=== PATIENT | female | born 1965 | race Caucasian/White ===

== ENCOUNTER 2025-04-06 12:56 | Emergency (ER) | payer SELFPAY ==
[~2025-04-06] VITALS: Ht 162.6 cm; Wt 99.1 kg
--- NOTE | 2025-04-06 13:07 | ECG ---
[facility] Test Date: 2025-04-06 Test Time: 13:06:52 Pat Name: WILLAM DELEON Department: ED Room: Gender: F Commercial Accountant: kaela : 1965 Requested By: HELEN BEGUM Order Number: [id number] Reading MD: Quentin Page Measurements Intervals [place] Rate: 58 P: 51 [place]: 155 QRS: 55 QRSD: 79 T: 49 QT: 447 QTc: 440 Interpretive Statements Sinus rhythm Low voltage, precordial leads Electronically Signed On 04-07-2025 14:27:39 PDT by Quentin Page Please click the below link to view image of tracing.
--- NOTE | 2025-04-06 13:39 | ED.PDOC ---
History of Present Illness HPI Comments 59-year-old female presents to the ER with prior medical history of high lipids, depression and a chief complaint of dizziness. Patient reports on not having insurance in running out of her high lipid medication three weeks ago, as well as her antidepression medication yesterday. Patient notes that she only has four more days of her heart rate medication. Patient states on having dizziness recently as well. Denies chills, fever, N/V/D, SOB, CP. No other associated symptoms, modifiers, recent injuries or sick contacts present at this time. Chief Complaint: Dizziness Time Seen by MD: 13:30 Reviewed Notes: Nurses Notes, Medications, Allergies Allergies: Coded Allergies: Sulfa Antibiotics (Verified Allergy, Severe, 04/06/25) Home Meds Active Scripts Meclizine HCl (Meclizine 25) 25 Mg Tab, 25 MG PO DAILY for 5 Days, #5 TAB Prov:HELEN BEGUM MD 04/06/25 Information Source: Patient Mode of Arrival: Ambulatory Severity: Moderate Timing: Weeks Duration: Since onset Prehospital treatment: None Past Medical History PAST MEDICAL HISTORY: Depression, High Lipids Past Medical History (Other): Taking Heart rate medication Surgical History: Denies all surgeries TAPE COATER History: No Pertinent TAPE COATER History Family History Family History: Reviewed,noncontributory to illness, Unknown Social History Smoker: Non-Smoker Alcohol: Denies ETOH Use Drugs: Denies Drug Use Lives In: Home Constitutional: denies: chills, diaphoresis, fatigue, fever, malaise, sweats, weakness, others EENTM: denies: blurred vision, double vision, ear bleeding, ear discharge, ear drainage, ear pain, ear ringing, eye pain, eye redness, hearing loss, mouth pain, mouth swelling, nasal discharge, nose bleeding, nose congestion, nose pain, photophobia, tearing, throat pain, throat swelling, voice changes, others Respiratory: denies: cough, hemoptysis, orthopnea, SOB at rest, shortness of breath, SOB with excertion, stridor, wheezing, others Cardiovascular: denies: chest pain, dizzy spells, diaphoresis, Dyspnea on exertion, edema, irregular heart beat, left arm pain, lightheadedness, palpitations, PND, syncope, others Gastrointestinal: denies: abdomen distended, abdominal pain, blood streaked bowels, constipated, diarrhea, dysphagia, difficulty swallowing, hematemesis, melena, nausea, poor appetite, poor fluid intake, rectal bleeding, rectal pain, vomiting, others Genitourinary: denies: abnormal vagina bleeding, burning, dyspareunia, dysuria, flank pain, frequency, hematuria, incontinence, pain, , vagina disch arge, urgency, others Neurological: reports: dizziness; denies: fainting, headache, left sided numbness, left sided weakness, numbness, paresthesia, pre-existing deficit, right sided numbness, right sided weakness, seizure, speech problems, tingling, tremors, weakness, others Musculoskeletal: denies: back pain, gout, joint pain, joint swelling, muscle pain, muscle stiffness, neck pain, others Integumetry: denies: bruises, change in color, change in hair/nails, dryness, laceration, lesions, lumps, rash, wounds, others Allergic/Immunocompromised: denies: Difficulty Healing, Frequent Infections, Hives, Itching, others Hematologic/Lymphatic: denies: anemia, blood clots, easy bleeding, easy bruising, swollen glands, others Endocrine: denies: excessive hunger, excessive sweating, excessive thirst, excessive urination, flushing, intolerance to cold, intolerance to heat, unexplained weight gain, unexplained weight loss, others Psychiatric: denies: anxiety, bipolar disorder, depression, hopeless, panic disorder, schizophrenia, sleepless, suicidal, others All Other Systems: Reviewed and Negative Physical Exam General Appearance: Moderate Distress, Normal HEENT: Normal ENT Inspection, Pharynx Normal, TMs Normal Neck: Full Range of Motion, Non-Tender, Normal, Normal Inspection Respiratory: Chest Non-Tender, Lungs Clear, No Accessory Muscle Use, No Respiratory Distress, Normal Breath Sounds Cardiovascular: No Edema, No JVD, No Murmur, No Gallop, Normal Peripheral Pulses, Regular Rate/Rhythm Breast Exam: Deferred Gastrointestinal: No Organomegaly, Non Tender, No Pulsatile Mass, Normal Bowel Sounds, Soft Genitalia: Deferred Pelvic: Deferred Rectal: Deferred Extremities: No calf tenderness, Normal capillary refill, Normal inspection, Normal range of motion, Non-tender, No pedal edema Musculoskeletal : Apperance: Normal Neurologic: Alert, phthalic acid purifier II-XII nml as Tested, No Motor Deficits, Normal Affect, Normal Mood, No Sensory Deficits Cerebellar Function: Normal Reflexes: Normal Skin: Dry, Normal Color, Warm Peripheral Pulses: 3+ Radial (R), 3+ Radial (L) Lymphatic: No Adenopathy Was a procedure done? Was a procedure done?: No Differential Dx Considerations may include: Anemia Electrolyte imbalance X-Ray, Labs, Meds, VS Vital Signs Date Time Temp Pulse Resp B/P (MAP) Pulse Ox O2 Delivery O2 Flow Rate FiO2 04/06/25 13:06 58 04/06/25 12:57 98.5 76 15 149/86 96 98.5 Lab Test 04/06/25 13:57 Range/Units White Blood Count 7.2 4.4-10.8 10^3/uL Red Blood Count 4.65 4.0-5.20 10^6/uL Hemoglobin 15.3 12.2-16.2 g/dL Hematocrit 44.8 36.0-46.0 % Mean Corpuscular Volume 96.2 80.0-100.0 fL Mean Corpuscular Hemoglobin 32.8 H 28.0-32.0 pg Mean Corpuscular Hemoglobin Concent 34.1 32.0-36.0 g/dL Red Cell Distribution Width 13.5 11.8-14.3 % Platelet Count 208 140-450 10^3/uL Mean Platelet Volume 9.2 6.9-10.8 fL Neutrophils (%) (Auto) 49.6 37.0-80.0 % Lymphocytes (%) (Auto) 36.7 10.0-50.0 % Monocytes (%) (Auto) 9.7 0.0-12.0 % Eosinophils (%) (Auto) 3.0 0.0-7.0 % Basophils (%) (Auto) 1.0 0.0-2.0 % Neutrophils # (Auto) 3.6 1.6-8.6 10 ^3/uL Lymphocytes # (Auto) 2.6 0.4-5.4 10 ^3/uL Monocytes # (Auto) 0.7 0-1.3 10 ^3/uL Eosinophils # (Auto) 0.2 0-0.8 10 ^3/uL Basophils # (Auto) 0.1 0-0.2 10 ^3/uL Nucleated Red Blood Cells 0.1 % Sodium Level 141 136-145 mmol/L Potassium Level 3.7 3.5-5.1 mmol/L Chloride Level 108 H 98-107 mmol/L Carbon Dioxide Level 28 20-31 mmol/L Anion Gap 5 5-15 Blood Urea Nitrogen 9 9-23 mg/dL Creatinine 0.88 0.550-1.02 mg/dL Glomerular Filtration Rate Calc 76 >90 mL/min BUN/Creatinine Ratio 10.2 10.0-20.0 Serum Glucose 97 74-106 mg/dL Calcium Level 9.3 8.7-10.4 mg/dL Troponin I High Sensitivity < 3 L </=34 ng/L Patient alert. Complaining of generalized symptoms. Physical examination pristine. Vitals stable. Saturation pristine on room air. WBC within normal limits. Hemoglobin within normal limits. Cardiac marker within normal limits. Abdomen is soft nontender. Neurological exam intact. No head trauma. Ambulating without difficulty. Possible autonomic disorder. Was given prescription of meclizine. Explained to the patient. Was told to follow up with her primary care physician. Was told to come back if there is any problem. Time of 1ST Reevaluation: 14:00 Reevaluation 1ST: Unchanged Patient Education/Counseling: Diagnosis, Treatment, Prognosis Family Education/Counseling: No Family Present SEPSIS Sepsis Screen Date sepsis recognized/suspect: Apr 06, 2025 Time Sepsis recognized/suspect: 1259 Recent Procedure: No On Antibiotic Therapy: No Respiratory Rate >20: No Heart Rate >90: No Temp<36 C (96.8 F) or >38.3 C: No SBP <90 or MAP <65 mmHG: No New Acute Mental Status Change: No Is the patient on CPAP, BIPAP,: No Physician Orders Urinalysis (04/06/25 13:14) Vital Signs Date Time Temp Pulse Resp B/P (MAP) Pulse Ox O2 Delivery O2 Flow Rate FiO2 04/06/25 13:06 58 04/06/25 12:57 98.5 76 15 149/86 96 98.5 Laboratory Tests Test 04/06/25 13:57 White Blood Count 7.2 10^3/uL (4.4-10.8) Departure 1 Departure Time of Disposition: 16:14 Impression: Primary Impression: Autonomic disorder Disposition: 01 HOME / SELF CARE / HOMELESS Condition: Good e-Prescriptions Rosuvastatin Calcium (Rosuvastatin Calcium) 10 Mg Tab 10 MG PO DAILY for 20 Days, #20 TAB Prov: HELEN BEGUM MD 04/06/25 Venlafaxine HCl (Venlafaxine Hydrochloride) 75 Mg Tab 75 MG PO DAILY for 15 Days, #15 TAB Prov: HELEN BEGUM MD 04/06/25 Sotalol HCl (Sotalol Hydrochloride (AF) 80 Mg Tab 80 MG PO BID for 15 Days, #30 TAB Prov: HELEN BEGUM MD 04/06/25 Meclizine HCl (Meclizine 25) 25 Mg Tab 25 MG PO DAILY for 5 Days, #5 TAB Prov: HELEN BEGUM MD 04/06/25 Discharged With: Self Critical Care Note Critical Care Time?: No Stability Stability form required: No Heart Score Heart Score: Heart Score Response (Comments) Value History Slightly Suspicious 0 EKG Normal 0 Age 45-64 1 Risk Factors 1 or 2 risk factors 1 Troponin Normal limit 0 Total 2 I personally scribed for HELEN BEGUM MD ([email or web address]) on 04/06/25 at 13:39. Electronically submitted by Herve Briggs ([email or web address]). HELEN BEGUM MD Apr 06, 2025 13:39
[2025-04-06 14:12] LABS: Hematocrit 44.8 % (36.0-46.0); Hemoglobin 15.3 g/dL (12.2-16.2); Mean Corpuscular Hemoglobin 32.8 pg (28.0-32.0); Mean Corpuscular Volume 96.2 fL (80.0-100.0); Nucleated Red Blood Cells % 0.1 %
[2025-04-06 14:19] LABS: Potassium 3.7 mmol/L (3.5-5.1); Sodium 141 mmol/L (136-145)
[2025-04-06 14:21] LABS: Anion Gap 5 (5-15); Calcium 9.3 mg/dL (8.7-10.4); Carbon Dioxide 28 mmol/L (20-31)
[2025-04-06 14:22] LABS: Chloride 108 mmol/L (98-107)
[2025-04-06 14:26] LABS: BUN/Creatinine Ratio 10.2 (10.0-20.0); Blood Urea Nitrogen 9 mg/dL (9-23); Glucose 97 mg/dL (74-106)
[2025-04-06] MEDS ORDERED: MECL1TAB42 PO (16:15)
[2025-04-06] MEDS ORDERED: VENL-192 PO (16:32)
[2025-04-06] MEDS ORDERED: SOTA80TA57 PO (16:32)
[2025-04-06] MEDS ORDERED: ROSU10TA64 PO (16:32)
[2025-04-06 16:34] VITALS: BP 135/86; PULSE 59; RESP 16; TEMP 97.9; O2SAT 99
== END 2025-04-06 16:36 | disposition home or self-care (01) ==
LOC: ER 12:56
DX: G90.9 Disorder of the autonomic nervous system, unspecified (principal); F32.A Depression, unspecified; E78.5 Hyperlipidemia, unspecified; Z88.2 Allergy status to sulfonamides; Z79.899 Other long term (current) drug therapy
CPT/HCPCS: 36415; 80048; 84484; 85025; 93005